=== PATIENT | female | born 1995 | race Hispanic/Latino ===

== ENCOUNTER 2024-01-26 07:58 | Emergency (ER) | payer OTHER ==
[~2024-01-26] VITALS: Ht 157.5 cm; Wt 63.5 kg
[2024-01-26 08:00] VITALS: TEMP 98.6
[2024-01-26 08:33] LABS: BASOPHILS % 0.2 % (0.0-1.0); EOSINOPHILS # (AUTO) 0.1 (0.0-0.4); EOSINOPHILS % 0.8 % (0.0-6.0); HEMATOCRIT 40.1 % (34.2-44.1); HEMOGLOBIN 13.3 g/dL (12.0-16.0); LYMPHOCYTES # (AUTO) 1.5 (1.0-3.2); LYMPHOCYTES % 14.5 % (18.0-39.1); MEAN CORPUSCULAR HEMOGLOBIN 29.1 pg (28-32); MEAN CORPUSCULAR HGB CONC 33.2 g/dL (31-35); MEAN CORPUSCULAR VOLUME 87.7 fL (81-99); MONOCYTES # (AUTO) 0.7 (0.2-0.8); MONOCYTES % 7.1 % (4.4-11.3); NEUTROPHILS # (AUTO) 7.7 (2.1-6.9); NEUTROPHILS % 77.1 % (38.7-80.0); PLATELET COUNT 275 x10e3/uL (140-360); RED BLOOD COUNT 4.57 x10e6/uL (3.6-5.1); RED CELL DISTRIBUTION WIDTH 12.2 % (11.7-14.4); WHITE BLOOD COUNT 10.04 x10e3/uL (4.8-10.8)
[2024-01-26 08:53] LABS: ALBUMIN 3.8 g/dL (3.5-5.0); ANION GAP 13.6 mmol/L (8-16); BILIRUBIN,TOTAL 0.9 mg/dL (0.2-1.2); CALCIUM 8.9 mg/dL (8.4-10.2); CREATININE, SERUM 0.74 mg/dL (0.57-1.11); POTASSIUM 3.6 mmol/L (3.5-5.1); TOTAL PROTEIN 7.7 g/dL (6.5-8.1)
[2024-01-26] MEDS ORDERED: IOPAMIDOL 370 MG/ML 100 ML INFUS..BTL INJ ONE (09:04)
[2024-01-26] MEDS: KETOROLAC TROMETHAMINE 30 MG/ML VIAL IV STA (09:20)
[2024-01-26] MEDS: Morphine 2mg Syringe 2 MG/ML SYR IV ONE (10:44)
[2024-01-26] MEDS: ONDANSETRON HCL INJ 2MG/ML 2ML 2 MG/ML VIAL IV STA (10:44)
[2024-01-26] MEDS: CLINDAMYCIN 600MG / 50ML 50 ML IV ONE (10:44)
[2024-01-26] MEDS ORDERED: AMOX TR-K CLV1 EAC2 PO (11:16)
[2024-01-26 11:59] VITALS: PULSE 72; RESP 14; O2SAT 99
== END 2024-01-26 12:10 | disposition home or self-care (01) ==
LOC: ER 08:05
DX: M54.2 Cervicalgia (principal); L02.11 Cutaneous abscess of neck; Z11.52 Encounter for screening for COVID-19
CPT/HCPCS: 36415; 70491; 80053; 84702; 85025; 87040; 99284; J1885; J2270; J2405; Q9967; U0002